=== PATIENT | male | born 1945 | race Caucasian/White ===

== ENCOUNTER 2018-03-22 07:58 | Observation (INO) ==
[2018-03-22 10:38] LABS: BASOPHILS % (AUTO) 0.8 % (0.2-1.0); EOSINOPHILS # (AUTO) 0.2 x10^3/uL (0.0-0.2); EOSINOPHILS % (AUTO) 3.6 % (0.9-2.9); HEMATOCRIT 35.1 % (42.0-54.0); HEMOGLOBIN 11.7 g/dL (13.5-18.0); LYMPHOCYTES # (AUTO) 1.5 X10^3/uL (1.3-2.9); LYMPHOCYTES % (AUTO) 31.6 % (21.0-51.0); MEAN CORPUSCULAR HEMOGLOBIN 29.5 pg (27.0-34.0); MEAN CORPUSCULAR HGB CONC 33.4 g/dL (33.0-35.0); MEAN CORPUSCULAR VOLUME 88.2 fL (80.0-100.0); MEAN PLATELET VOLUME 8.3 fL (7.4-11.0); MONOCYTES # (AUTO) 0.5 x10^3/uL (0.3-0.8); MONOCYTES % (AUTO) 10.7 % (0.0-13.0); NEUTROPHILS # (AUTO) 2.5 x10^3/uL (2.2-4.8); NEUTROPHILS % (AUTO) 53.3 % (42.0-75.0); PLATELET COUNT 262 X10^3/uL (150.0-450.0); RED BLOOD COUNT 3.98 X10^6/uL (4.7-6.0); RED CELL DISTRIBUTION WIDTH 14.4 % (11.6-16.5); WHITE BLOOD COUNT 4.7 X10^3/uL (3.6-10.0)
[2018-03-22 10:45] LABS: ALANINE AMINOTRANSFERASE 25 Units/L (12-78); ALKALINE PHOSPHATASE 51 Units/L (46-116); ASPARTATE AMINO TRANSFERASE 15 Units/L (15-37); BLOOD UREA NITROGEN 24 mg/dL (7-18); CALCIUM 8.4 mg/dL (8.5-10.1); CARBON DIOXIDE 30.5 mmol/L (21-32); CHLORIDE 106 mmol/L (98-107); COR CA(FOR HYPOALB) 9.2 mg/dL (8.5-10.1); CREATININE 1.02 mg/dL (0.70-1.30); SODIUM 142 mmol/L (136-145); TOTAL PROTEIN 6.9 g/dL (6.4-8.2); eGFR NON BLACK RACES > 60 (>60)
[2018-03-22 10:52] VITALS: BMI 36.9
[2018-03-22 12:17] LABS: BILIRUBIN,URINE NEGATIVE (NEGATIVE); BLOOD/HEMOGLOBIN,URINE NEGATIVE (NEGATIVE); GLUCOSE, URINE NEGATIVE (NEGATIVE); KETONES,URINE NEGATIVE (NEGATIVE); LEUKOCYTE ESTERASE ,URINE NEGATIVE (NEGATIVE); NITRITES,URINE NEGATIVE (NEGATIVE); PROTEIN,URINE NEGATIVE (NEGATIVE); UROBILINOGEN,URINE NORMAL (NORMAL)
[2018-03-22 12:20] LABS: APPEARANCE,URINE CLEAR (CLEAR); COLOR,URINE YELLOW (YELLOW)
[2018-03-22] MEDS ORDERED: NS 100 ML IV 100 ML IV ONE (15:14)
[2018-03-22] MEDS: NS 1000 ML 1,000 ML IV SCH (16:30)
[2018-03-22] MEDS: PHENERGAN INJ 25 MG IV PRN (17:00)
[2018-03-22] MEDS: DEMEROL INJ IVP PRN (17:00)
--- NOTE | 2018-03-22 17:47 | CT ---
CT abdomen and pelvis with contrast Indication: Abdominal pain, history of Crohn's Comparison: 03/02/2018 Technique: CT images of the abdomen and pelvis were obtained with IV and oral contrast. Automatic exp osure control was utilized. Findings: No acute osseous abnormality. The lung bases are essentially clear. The liver, gallbladder, spleen, stomach, duodenum, pancreas, and adrenals are unremarkable. Small renita ateral renal collecting system stones are similar to prior. There is no hydronephrosis. The kidneys e nhance normally. No ureteral stone identified. No significant thickening or dilatation of the lower G I tract identified. The appendix is normal. The urinary bladder, prostate, and rectum are unremarkabl e. No free fluid or adenopathy. Impression: No acute process to explain patient's symptoms. Nonobstructing bilateral nephrolithiasis and other findings as above. Reported By:
[2018-03-23] MEDS: NS 1000 ML 1,000 ML IV SCH ×2 (01:00→21:59)
[2018-03-23 05:24] LABS: BASOPHILS # (AUTO) 0.1 X10^3/uL (0.0-0.1); BASOPHILS % (AUTO) 1.1 % (0.2-1.0); EOSINOPHILS # (AUTO) 0.2 x10^3/uL (0.0-0.2); EOSINOPHILS % (AUTO) 4.4 % (0.9-2.9); HEMATOCRIT 34.8 % (42.0-54.0); HEMOGLOBIN 11.8 g/dL (13.5-18.0); LYMPHOCYTES # (AUTO) 1.5 X10^3/uL (1.3-2.9); LYMPHOCYTES % (AUTO) 28.9 % (21.0-51.0); MEAN CORPUSCULAR HEMOGLOBIN 29.8 pg (27.0-34.0); MEAN CORPUSCULAR HGB CONC 33.9 g/dL (33.0-35.0); MEAN PLATELET VOLUME 7.9 fL (7.4-11.0); MONOCYTES # (AUTO) 0.7 x10^3/uL (0.3-0.8); MONOCYTES % (AUTO) 13.7 % (0.0-13.0); NEUTROPHILS # (AUTO) 2.7 x10^3/uL (2.2-4.8); NEUTROPHILS % (AUTO) 51.9 % (42.0-75.0); PLATELET COUNT 257 X10^3/uL (150.0-450.0); RED BLOOD COUNT 3.96 X10^6/uL (4.7-6.0); RED CELL DISTRIBUTION WIDTH 14.5 % (11.6-16.5); WHITE BLOOD COUNT 5.2 X10^3/uL (3.6-10.0)
[2018-03-23 05:46] LABS: ALANINE AMINOTRANSFERASE 26 Units/L (12-78); ALBUMIN 2.8 g/dL (3.4-5.0); ALKALINE PHOSPHATASE 50 Units/L (46-116); ASPARTATE AMINO TRANSFERASE 19 Units/L (15-37); BLOOD UREA NITROGEN 21 mg/dL (7-18); CALCIUM 8.9 mg/dL (8.5-10.1); CARBON DIOXIDE 30.6 mmol/L (21-32); CHLORIDE 107 mmol/L (98-107); COR CA(FOR HYPOALB) 9.9 mg/dL (8.5-10.1); CREATININE 0.97 mg/dL (0.70-1.30); SODIUM 141 mmol/L (136-145); TOTAL PROTEIN 6.5 g/dL (6.4-8.2); eGFR NON BLACK RACES > 60 (>60)
[2018-03-23] MEDS: MILK OF MAGNESIA PO SCH ×4 (09:59→21:28)
[2018-03-23] MEDS ORDERED: COLACE CAP 100 MG PO SCH ×2 (10:00→21:00)
[2018-03-23] MEDS ORDERED: KLONOPIN TAB 1 MG PO PRN (11:24)
[2018-03-23] MEDS ORDERED: ULTRAM PO PRN (11:24)
[2018-03-23] MEDS ORDERED: VITAMIN D PO SCH (11:30)
[2018-03-23] MEDS ORDERED: POTASSIUM CITRATE PO SCH (11:30)
[2018-03-23] MEDS ORDERED: OMEGA DHA EPA FISH OIL PO SCH (11:30)
[2018-03-23] MEDS: PROTONIX TAB 40 MG PO SCH ×2 (11:34→21:25)
[2018-03-23] MEDS: COZAAR PO SCH (11:34)
[2018-03-23] MEDS: SYNTHROID 50 mcg TAB PO SCH (11:34)
[2018-03-23] MEDS: TIMOLOL EACHEYE SCH ×2 (11:46→21:28)
[2018-03-23] MEDS: DORZOLAMIDE EACHEYE SCH ×2 (11:46→21:28)
[2018-03-23] MEDS: DEMEROL INJ IVP PRN ×2 (11:47→21:26)
[2018-03-23] MEDS: ALPHAGAN P 0.15% OPHTH SOLN OP SCH ×2 (11:47→21:27)
[2018-03-23] MEDS: PHENERGAN INJ 25 MG IV PRN (11:48)
--- NOTE | 2018-03-23 15:49 | NM ---
HISTORY: Abdominal pain Study: Nuclear medicine HIDA scan with ejection fraction Comparison: None Technique: Multiple scintigraphic images of the abdomen were obtained the intravenous administration of 5.6 mCi of technetium labeled Choletec. Following distention of the gallbladder with radiotracer, the patient drank 8 oz of Ensure Plus to si mulate a fatty meal. An estimated gallbladder ejection fraction was calculated based on the physiolo gic response of this ingestion. Findings: Homogeneous uptake of radiotracer is seen throughout the liver. This intrabiliary ductal system is o bserved normally. The common hepatic and common bile duct grossly appear unremarkable with normal bi liary-bowel transit. The gallbladder is observed to fill normally. After the patient drank Ensure, a normal gallbladder ejection fraction of 0% (normal > 35%) is observ ed. IMPRESSION: 1. Normal hepatobiliary imaging scan. 2. Marked gallbladder hypokinesia, with calculated EF of 0%. Reported By:
[2018-03-23] MEDS ORDERED: VIT C VIT E LUTEIN MIN OM PO SCH (21:00)
[2018-03-23] MEDS: ZOCOR TAB 20 MG PO SCH (21:25)
[2018-03-23] MEDS: PROSCAR PO SCH (21:25)
[2018-03-23] MEDS: FLOMAX PO SCH (21:25)
[2018-03-23] MEDS: HEMOCYTE-PLUS PO SCH (21:26)
[2018-03-23] MEDS: MIRALAX POWDER (1 DOSE 17 G) PO SCH (21:26)
[2018-03-23] MEDS: ZANTAC PO SCH (21:26)
[2018-03-23] MEDS: COLACE CAP 100 MG PO SCH (21:27)
[2018-03-23] MEDS: LOVAZA PO SCH (21:27)
[2018-03-23] MEDS: XALATAN OP SCH (21:27)
[2018-03-23] MEDS: K-DUR TAB 20 MEQ PO SCH (21:28)
[2018-03-24] MEDS: NS 1000 ML 1,000 ML IV SCH (04:26)
[2018-03-24 06:37] LABS: BASOPHILS # (AUTO) 0.1 X10^3/uL (0.0-0.1); BASOPHILS % (AUTO) 1.2 % (0.2-1.0); EOSINOPHILS # (AUTO) 0.3 x10^3/uL (0.0-0.2); EOSINOPHILS % (AUTO) 4.8 % (0.9-2.9); HEMATOCRIT 35.4 % (42.0-54.0); HEMOGLOBIN 11.9 g/dL (13.5-18.0); LYMPHOCYTES # (AUTO) 1.7 X10^3/uL (1.3-2.9); LYMPHOCYTES % (AUTO) 32.6 % (21.0-51.0); MEAN CORPUSCULAR HEMOGLOBIN 29.9 pg (27.0-34.0); MEAN CORPUSCULAR HGB CONC 33.7 g/dL (33.0-35.0); MEAN CORPUSCULAR VOLUME 88.6 fL (80.0-100.0); MEAN PLATELET VOLUME 8.4 fL (7.4-11.0); MONOCYTES # (AUTO) 0.9 x10^3/uL (0.3-0.8); MONOCYTES % (AUTO) 17.1 % (0.0-13.0); NEUTROPHILS # (AUTO) 2.3 x10^3/uL (2.2-4.8); NEUTROPHILS % (AUTO) 44.3 % (42.0-75.0); PLATELET COUNT 247 X10^3/uL (150.0-450.0); RED CELL DISTRIBUTION WIDTH 14.7 % (11.6-16.5); WHITE BLOOD COUNT 5.3 X10^3/uL (3.6-10.0)
[2018-03-24 06:58] LABS: ALANINE AMINOTRANSFERASE 28 Units/L (12-78); ALBUMIN 2.9 g/dL (3.4-5.0); ALKALINE PHOSPHATASE 51 Units/L (46-116); ASPARTATE AMINO TRANSFERASE 19 Units/L (15-37); BLOOD UREA NITROGEN 23 mg/dL (7-18); CALCIUM 8.9 mg/dL (8.5-10.1); CARBON DIOXIDE 28.4 mmol/L (21-32); CHLORIDE 110 mmol/L (98-107); COR CA(FOR HYPOALB) 9.8 mg/dL (8.5-10.1); CREATININE 0.87 mg/dL (0.70-1.30); SODIUM 143 mmol/L (136-145); TOTAL PROTEIN 6.5 g/dL (6.4-8.2); eGFR NON BLACK RACES > 60 (>60)
[2018-03-24] MEDS: DEMEROL INJ IVP PRN ×3 (07:49→22:54)
--- NOTE | 2018-03-24 09:08 | RAD ---
HISTORY: Preop cholecystectomy Study: Chest PA and lateral Comparison: None Findings: The heart is within normal limits in size. The chao are normal. The lungs are well inflated and free of acute alveolar infiltrates. No pleural effusions are identified. The bony thorax is unremarkable. IMPRESSION: No significant abnormality identified Reported By:
[2018-03-24] MEDS: ALPHAGAN P 0.15% OPHTH SOLN OP SCH ×2 (09:18→20:48)
[2018-03-24] MEDS: PROTONIX TAB 40 MG PO SCH ×2 (09:19→20:40)
[2018-03-24] MEDS: SYNTHROID 50 mcg TAB PO SCH (09:19)
[2018-03-24] MEDS: VITAMIN D3 PO SCH (09:19)
[2018-03-24] MEDS: COLACE CAP 100 MG PO SCH ×2 (09:19→20:40)
[2018-03-24] MEDS: LOVAZA PO SCH ×2 (09:20→20:48)
[2018-03-24] MEDS: LASIX PO SCH (09:20)
[2018-03-24] MEDS: COZAAR PO SCH (09:20)
[2018-03-24] MEDS: K-DUR TAB 20 MEQ PO SCH ×2 (09:21→20:43)
[2018-03-24] MEDS: DORZOLAMIDE EACHEYE SCH ×2 (09:21→20:48)
[2018-03-24] MEDS: TIMOLOL EACHEYE SCH ×2 (09:21→20:48)
[2018-03-24] MEDS: MILK OF MAGNESIA PO SCH ×4 (09:22→20:48)
--- NOTE | 2018-03-24 10:03 | DR.UPDATE ---
H&P Update History and Physical Update: WAS SEEN IN THE OFFICE TODAY. A H&P WAS COMPLETED PRIOR TO ADMISSION. PATIENT HAS BEEN SEEN AND EXAMINED WITH NO CHANGES NOTED TO H&P. Changes noted: NO Yes with the following:
[2018-03-24] MEDS ORDERED: LR 1000 ML IV 1,000 ML IV ONE (12:07)
[2018-03-24] MEDS ORDERED: ANCEF 1 GRAM IV PREMIX* 1 G/50 ML BAG IV ONE (12:07)
[2018-03-24] MEDS ORDERED: FENTANYL INJ 250 mcg ONE (12:21)
--- NOTE | 2018-03-24 12:37 | PCM.PROG ---
Progress Note - Progress Note for Day of Date of Exam: 03/23/18 - Subjective Subjective: WAS ADMITTED FOR ABDOMINAL PAIN. TODAY, HE IS ALERT AND ORIENTED, LYING IN BED ON MORNING ROUNDS. HE CONTINUES WITH COMPLAINTS OF RIGHT UPPER QUADRANT AND RIGHT LOWER QUADRANT PAIN. ON EXAMINATION, HEART IS REGULAR IN RATE AND RHYTHM. BILATERAL LUNGS ARE NOTED WITH DIMINISHED LUNG SOUNDS THROUGHOUT. ABDOMEN IS DISTENDED AND NOTED WITH RIGHT SIDED TENDERNESS. NORMAL BOWEL SOUNDS ARE NOTED IN ALL QUADRANTS. HIS VITALS THIS MORNING ARE 98.0-63-20 -97%-166/75. LABS WERE OBTAINED. ABNORMAL LAB VALUES INCLUDE THE FOLLOWING: RBC 3.96, HGB 11.8, HCT 34.8, BUN 21, GLUCOSE 105, ALBUMIN 2.8. AN ABDOMEN/PELVIS CT WAS OBTAINED YESTERDAY AND REVEALED: The liver, gallbladder, spleen, stomach , duodenum, pancreas, and adrenals are unremarkable. Small bilateral renal collecting system stones are similar to prior. There is no hydronephrosis. The kidneys enhance normally. No ureteral stone identified. No significant thickening or dilatation of the lower GI tract identified. The appendix is normal. The urinary bladder, prostate, and rectum are unremarkable. No free fluid or adenopathy. HE IS SCHEDULED FOR A HIDA SCAN TODAY. OTHERWISE, WE WILL CONTINUE WITH CURRENT PLAN OF CARE. WE WILL FOLLOW UP WITH AM LABS AND CONTINUE TO MONITOR. - Past Medical Family Social History Past Med/Fam/Surg Hx: No changes since H&P Allergies: Allergies No Known Drug Allergies Allergy (Verified 03/22/18 09:41) - Review of Systems ROS: No change since H&P - Vital Signs and I&O's Vital Signs: Temperature 97.8 F Pulse Rate [Left] 56 Pulse Rate [Right Brachial] 56 Respiratory Rate 18 Blood Pressure [Left Arm] 163/77 Blood Pressure [Right Arm] 121/60 Blood Pressure 176/89 O2 Sat by Pulse Oximetry 96 Intake and Output: Intake & Output 03/22/18 03/23/18 03/24/18 03/25/18 11:59 11:59 11:59 11:59 Intake Total 650 / 650 1020 / 1020 Balance 650 / 650 1020 / 1020 - Physical Exam Oriented: Normal Eyes: Normal Ear: Normal Nose: Normal Throat: Normal Respiratory: Generalized, Diminished Cardiovascular: Normal. negative: S3, S4, Murmur : Normal Auscultation: Bowel Sounds: Normal Palpation: Normal Tenderness: RUQ, RLQ, Moderate. negative: Rebound, Guarding, Rigidity Skin: Normal Musculoskeletal: Normal Psychiatric: Normal Mood Description: Calm Affect: Normal Speech Pattern: Clear, Appropriate - Laboratory and Diagnostics Result Diagrams: 03/24/18 05:11 03/24/18 05:11 Labs: 03/22/18 12:07 Urine,Clean Catch Urine Culture - Final Laboratory WBC 5.3 X10^3/uL (3.6-10.0) 03/24/18 05:11 RBC 4.00 X10^6/uL (4.7-6.0) L 03/24/18 05:11 Hgb 11.9 g/dL (13.5-18.0) L 03/24/18 05:11 Hct 35.4 % (42.0-54.0) L 03/24/18 05:11 MCV 88.6 fL (80.0-100.0) 03/24/18 05:11 MCH 29.9 pg (27.0-34.0) 03/24/18 05:11 MCHC 33.7 g/dL (33.0-35.0) 03/24/18 05:11 RDW 14.7 % (11.6-16.5) 03/24/18 05:11 Plt Count 247 X10^3/uL (150.0-450.0) 03/24/18 05:11 MPV 8.4 fL (7.4-11.0) 03/24/18 05:11 Neut % (Auto) 44.3 % (42.0-75.0) 03/24/18 05:11 Lymph % (Auto) 32.6 % (21.0-51.0) 03/24/18 05:11 [place] % (Auto) 17.1 % (0.0-13.0) H 03/24/18 05:11 Eos % (Auto) 4.8 % (0.9-2.9) H 03/24/18 05:11 Baso % (Auto) 1.2 % (0.2-1.0) H 03/24/18 05:11 Neut # (Auto) 2.3 x10^3/uL (2.2-4.8) 03/24/18 05:11 Lymph # (Auto) 1.7 X10^3/uL (1.3-2.9) 03/24/18 05:11 [place] # (Auto) 0.9 x10^3/uL (0.3-0.8) H 03/24/18 05:11 Eos # (Auto) 0.3 x10^3/uL (0.0-0.2) H 03/24/18 05:11 Baso # (Auto) 0.1 X10^3/uL (0.0-0.1) 03/24/18 05:11 Absolute Nucleated RBC 0.0 /100WBC 03/24/18 05:11 Sodium 143 mmol/L (136-145) 03/24/18 05:11 Corrected Sodium TNP 03/24/18 05:11 Potassium 4.1 mmol/L (3.5-5.1) 03/24/18 05:11 Chloride 110 mmol/L (98-107) H 03/24/18 05:11 Carbon Dioxide 28.4 mmol/L (21-32) 03/24/18 05:11 BUN 23 mg/dL (7-18) H 03/24/18 05:11 Creatinine 0.87 mg/dL (0.70-1.30) 03/24/18 05:11 Est GFR (MDRD) Af Amer > 60 (>60) 03/24/18 05:11 Est GFR (MDRD) Non-Af > 60 (>60) 03/24/18 05:11 Glucose 106 mg/dL (65-99) H 03/24/18 05:11 Calcium 8.9 mg/dL (8.5-10.1) 03/24/18 05:11 Corrected Calcium 9.8 mg/dL (8.5-10.1) 03/24/18 05:11 Total Bilirubin 0.10 mg/dL (0.2-1.0) L 03/24/18 05:11 AST 19 Units/L (15-37) 03/24/18 05:11 ALT 28 Units/L (12-78) 03/24/18 05:11 Alkaline Phosphatase 51 Units/L (46-116) 03/24/18 05:11 Total Protein 6.5 g/dL (6.4-8.2) 03/24/18 05:11 Albumin 2.9 g/dL (3.4-5.0) L 03/24/18 05:11 Globulin 3.6 g/dL (2.5-4.5) 03/24/18 05:11 Albumin/Globulin Ratio 0.8 Ratio (1.1-2.1) L 03/24/18 05:11 Specimen Type Clean catch urine 03/22/18 12:07 Urine Color Yellow (YELLOW) 03/22/18 12:07 Urine Appearance Clear (CLEAR) 03/22/18 12:07 Urine pH 8.0 (5.0 - 8.0) 03/22/18 12:07 Ur Specific [place] 1.020 (1.000-1.030) 03/22/18 12:07 Urine Protein Negative (NEGATIVE) 03/22/18 12:07 Urine Glucose (UA) Negative (NEGATIVE) 03/22/18 12:07 Urine Ketones Negative (NEGATIVE) 03/22/18 12:07 Urine Occult Blood Negative (NEGATIVE) 03/22/18 12:07 Urine Nitrite Negative (NEGATIVE) 03/22/18 12:07 Urine Bilirubin Negative (NEGATIVE) 03/22/18 12:07 Urine Urobilinogen Normal (NORMAL) 03/22/18 12:07 Ur Leukocyte Esterase Negative (NEGATIVE) 03/22/18 12:07 - Plan (1) Abdominal pain Status: Acute Qualifiers: Abdominal location: generalized Qualified Code(s): R10.84 - Generalized abdominal pain Plan: HIDA SCAN TODAY, CONTINUE IV PAIN CONTROL, CONTINUE TO MONITOR.
[2018-03-24] MEDS ORDERED: DILAUDID INJ IVP PRN (13:37)
[2018-03-24] MEDS ORDERED: REGLAN INJ 10 MG VIAL IVP PRN (13:37)
[2018-03-24] MEDS ORDERED: PHENERGAN INJ 25 MG IVP PRN (13:37)
[2018-03-24] MEDS ORDERED: BENADRYL INJ 50 MG VIAL IVP PRN (13:37)
[2018-03-24] MEDS ORDERED: ZOFRAN INJ 4 MG VIAL IVP PRN (13:37)
[2018-03-24] MEDS ORDERED: SUPRANE IN ONE (15:18)
[2018-03-24] MEDS ORDERED: DIPRIVAN VIAL ONE (15:18)
[2018-03-24] MEDS ORDERED: EPHEDRINE SULFATE INJ ONE (15:18)
[2018-03-24] MEDS ORDERED: NORCURON INJ 10 MG VIAL ONE (15:18)
[2018-03-24] MEDS ORDERED: QUELICIN (OR ANECTINE) ONE (15:18)
[2018-03-24] MEDS ORDERED: NEOSTIGMINE INJ ONE (15:18)
[2018-03-24] MEDS ORDERED: VERSED ONE (15:18)
[2018-03-24] MEDS ORDERED: ZOFRAN INJ 4 MG VIAL ONE (15:18)
[2018-03-24] MEDS ORDERED: XYLOCAINE 2 % (PLAIN) ONE (15:18)
[2018-03-24] MEDS ORDERED: ROBINUL ONE (15:18)
[2018-03-24] MEDS: PROSCAR PO SCH (20:40)
[2018-03-24] MEDS: FLOMAX PO SCH (20:40)
[2018-03-24] MEDS: ZANTAC PO SCH (20:42)
[2018-03-24] MEDS: HEMOCYTE-PLUS PO SCH (20:42)
[2018-03-24] MEDS: ZOCOR TAB 20 MG PO SCH (20:43)
[2018-03-24] MEDS: MIRALAX POWDER (1 DOSE 17 G) PO SCH (20:45)
[2018-03-24] MEDS: XALATAN OP SCH (20:48)
[2018-03-25] MEDS: NS 1000 ML 1,000 ML IV SCH (02:26)
[2018-03-25 05:24] LABS: BASOPHILS # (AUTO) 0.1 X10^3/uL (0.0-0.1); EOSINOPHILS # (AUTO) 0.2 x10^3/uL (0.0-0.2); EOSINOPHILS % (AUTO) 2.9 % (0.9-2.9); HEMATOCRIT 34.3 % (42.0-54.0); HEMOGLOBIN 11.7 g/dL (13.5-18.0); LYMPHOCYTES # (AUTO) 1.8 X10^3/uL (1.3-2.9); LYMPHOCYTES % (AUTO) 26.3 % (21.0-51.0); MEAN CORPUSCULAR HEMOGLOBIN 30.1 pg (27.0-34.0); MEAN CORPUSCULAR HGB CONC 34.1 g/dL (33.0-35.0); MEAN CORPUSCULAR VOLUME 88.4 fL (80.0-100.0); MEAN PLATELET VOLUME 7.9 fL (7.4-11.0); MONOCYTES # (AUTO) 0.8 x10^3/uL (0.3-0.8); MONOCYTES % (AUTO) 11.6 % (0.0-13.0); NEUTROPHILS % (AUTO) 58.2 % (42.0-75.0); PLATELET COUNT 231 X10^3/uL (150.0-450.0); RED BLOOD COUNT 3.89 X10^6/uL (4.7-6.0); RED CELL DISTRIBUTION WIDTH 14.4 % (11.6-16.5); WHITE BLOOD COUNT 6.9 X10^3/uL (3.6-10.0)
[2018-03-25] MEDS: DEMEROL INJ IVP PRN (05:26)
[2018-03-25 05:33] LABS: ALANINE AMINOTRANSFERASE 40 Units/L (12-78); ALBUMIN 2.8 g/dL (3.4-5.0); ALKALINE PHOSPHATASE 56 Units/L (46-116); ASPARTATE AMINO TRANSFERASE 38 Units/L (15-37); BLOOD UREA NITROGEN 17 mg/dL (7-18); CALCIUM 8.4 mg/dL (8.5-10.1); CHLORIDE 107 mmol/L (98-107); COR CA(FOR HYPOALB) 9.4 mg/dL (8.5-10.1); CREATININE 0.88 mg/dL (0.70-1.30); SODIUM 141 mmol/L (136-145); TOTAL PROTEIN 6.3 g/dL (6.4-8.2); eGFR NON BLACK RACES > 60 (>60)
[2018-03-25 08:01] VITALS: BP 156/70
--- NOTE | 2018-03-25 08:26 | DR.PROGNOT ---
Hospital Progress Notes - Progress Note for Day of: Progress Note Date: 03/25/18 - Chief Complaint Chief Complaint: PO lap jamarcus . doing well , mild incisional pain , no nausea or vomiting .. LFT normal . will follow in the office. - Past Medical Family Social History Past Med/Fam/Surg Hx: No changes since H&P Allergies: Allergies No Known Drug Allergies Allergy (Verified 03/22/18 09:41) - Review Of Systems ROS: No change since H&P - Vital Signs Vital Signs: Temperature 97.9 F Pulse Rate [Left] 55 Pulse Rate [Right Brachial] 55 Pulse Rate 69 Respiratory Rate 18 Blood Pressure [Left Arm] 119/58 Blood Pressure [Right Arm] 156/70 Blood Pressure 163/77 O2 Sat by Pulse Oximetry 93 - Physical Exam Oriented: Normal Eyes: Normal Ear: Normal Nose: Normal Throat: Normal Respiratory: Generalized, Diminished Cardiovascular: Normal. negative: S3, S4, Murmur : Normal GI:Auscultation: Normal GI:Palpation: Normal GI: Tenderness: RUQ, RLQ, Moderate. negative: Rebound, Guarding, Rigidity Skin: Normal Musculoskeletal: Normal Psychiatric: Normal Mood Description: Calm Affect: Normal Speech Pattern: Clear, Appropriate - Laboratory and Diagnostics Result Diagrams: 03/25/18 04:58 03/25/18 04:58 Labs: 03/22/18 12:07 Urine,Clean Catch Urine Culture - Final Laboratory WBC 6.9 X10^3/uL (3.6-10.0) 03/25/18 04:58 RBC 3.89 X10^6/uL (4.7-6.0) L 03/25/18 04:58 Hgb 11.7 g/dL (13.5-18.0) L 03/25/18 04:58 Hct 34.3 % (42.0-54.0) L 03/25/18 04:58 MCV 88.4 fL (80.0-100.0) 03/25/18 04:58 MCH 30.1 pg (27.0-34.0) 03/25/18 04:58 MCHC 34.1 g/dL (33.0-35.0) 03/25/18 04:58 RDW 14.4 % (11.6-16.5) 03/25/18 04:58 Plt Count 231 X10^3/uL (150.0-450.0) 03/25/18 04:58 MPV 7.9 fL (7.4-11.0) 03/25/18 04:58 Neut % (Auto) 58.2 % (42.0-75.0) 03/25/18 04:58 Lymph % (Auto) 26.3 % (21.0-51.0) 03/25/18 04:58 [place] % (Auto) 11.6 % (0.0-13.0) 03/25/18 04:58 Eos % (Auto) 2.9 % (0.9-2.9) 03/25/18 04:58 Baso % (Auto) 1.0 % (0.2-1.0) 03/25/18 04:58 Neut # (Auto) 4.0 x10^3/uL (2.2-4.8) 03/25/18 04:58 Lymph # (Auto) 1.8 X10^3/uL (1.3-2.9) 03/25/18 04:58 [place] # (Auto) 0.8 x10^3/uL (0.3-0.8) 03/25/18 04:58 Eos # (Auto) 0.2 x10^3/uL (0.0-0.2) 03/25/18 04:58 Baso # (Auto) 0.1 X10^3/uL (0.0-0.1) 03/25/18 04:58 Absolute Nucleated RBC 0.0 /100WBC 03/25/18 04:58 Sodium 141 mmol/L (136-145) 03/25/18 04:58 Corrected Sodium TNP 03/25/18 04:58 Potassium 4.1 mmol/L (3.5-5.1) 03/25/18 04:58 Chloride 107 mmol/L (98-107) 03/25/18 04:58 Carbon Dioxide 30.0 mmol/L (21-32) 03/25/18 04:58 BUN 17 mg/dL (7-18) 03/25/18 04:58 Creatinine 0.88 mg/dL (0.70-1.30) 03/25/18 04:58 Est GFR (MDRD) Af Amer > 60 (>60) 03/25/18 04:58 Est GFR (MDRD) Non-Af > 60 (>60) 03/25/18 04:58 Glucose 103 mg/dL (65-99) H 03/25/18 04:58 Calcium 8.4 mg/dL (8.5-10.1) L 03/25/18 04:58 Corrected Calcium 9.4 mg/dL (8.5-10.1) 03/25/18 04:58 Total Bilirubin 0.40 mg/dL (0.2-1.0) 03/25/18 04:58 AST 38 Units/L (15-37) H 03/25/18 04:58 ALT 40 Units/L (12-78) 03/25/18 04:58 Alkaline Phosphatase 56 Units/L (46-116) 03/25/18 04:58 Total Protein 6.3 g/dL (6.4-8.2) L 03/25/18 04:58 Albumin 2.8 g/dL (3.4-5.0) L 03/25/18 04:58 Globulin 3.5 g/dL (2.5-4.5) 03/25/18 04:58 Albumin/Globulin Ratio 0.8 Ratio (1.1-2.1) L 03/25/18 04:58 Specimen Type Clean catch urine 03/22/18 12:07 Urine Color Yellow (YELLOW) 03/22/18 12:07 Urine Appearance Clear (CLEAR) 03/22/18 12:07 Urine pH 8.0 (5.0 - 8.0) 03/22/18 12:07 Ur Specific [place] 1.020 (1.000-1.030) 03/22/18 12:07 Urine Protein Negative (NEGATIVE) 03/22/18 12:07 Urine Glucose (UA) Negative (NEGATIVE) 03/22/18 12:07 Urine Ketones Negative (NEGATIVE) 03/22/18 12:07 Urine Occult Blood Negative (NEGATIVE) 03/22/18 12:07 Urine Nitrite Negative (NEGATIVE) 03/22/18 12:07 Urine Bilirubin Negative (NEGATIVE) 03/22/18 12:07 Urine Urobilinogen Normal (NORMAL) 03/22/18 12:07 Ur Leukocyte Esterase Negative (NEGATIVE) 03/22/18 12:07 Tissue Pathology To follow 03/24/18 13:07 - Assessment and Plan 1: post op lap jamarcus for cholecystitis . h/o Crohn's disease ,. will advance diet and follow in the office. - Problem Patient Problems: Patient Problems Abdominal pain (Acute) R10.9
[2018-03-25] MEDS: VITAMIN D3 PO SCH (09:28)
[2018-03-25] MEDS: MILK OF MAGNESIA PO SCH (09:28)
[2018-03-25] MEDS: K-DUR TAB 20 MEQ PO SCH (09:28)
[2018-03-25] MEDS: PROTONIX TAB 40 MG PO SCH (09:28)
[2018-03-25] MEDS: COZAAR PO SCH (09:29)
[2018-03-25] MEDS: SYNTHROID 50 mcg TAB PO SCH (09:29)
[2018-03-25] MEDS: LASIX PO SCH (09:29)
[2018-03-25] MEDS: COLACE CAP 100 MG PO SCH (09:30)
[2018-03-25] MEDS: LOVAZA PO SCH (09:30)
--- NOTE | 2018-05-01 14:23 | PCM.PROG ---
Progress Note - Progress Note for Day of Date of Exam: 03/24/18 - Subjective Subjective: WAS ADMITTED FOR ABDOMINAL PAIN. TODAY, HE IS ALERT AND ORIENTED, LYING IN BED ON MORNING ROUNDS. HE CONTINUES WITH COMPLAINTS OF RIGHT UPPER QUADRANT AND RIGHT LOWER QUADRANT PAIN. ON EXAMINATION, HEART IS REGULAR IN RATE AND RHYTHM. BILATERAL LUNGS ARE NOTED WITH DIMINISHED LUNG SOUNDS THROUGHOUT. ABDOMEN IS DISTENDED AND NOTED WITH RIGHT SIDED TENDERNESS. NORMAL BOWEL SOUNDS ARE NOTED IN ALL QUADRANTS. HIS VITALS THIS MORNING ARE 97.8-56-18 -96%-163/77. LABS WERE OBTAINED. HE IS HEMODYNAMICALLY STABLE TODAY. A HIDA SCAN WAS OBTAINED YESTERDAY AND OBTAINED AN EJECTION FRACTION OF 0%. WE CONSULTED AND HE PLANS FOR A LAP DON TODAY. WE ARE IN AGREEMENT WITH PLAN AND PATIENT IS MEDICALLY STABLE AND CLEAR FOR SURGERY. OTHERWISE, WE WILL CONTINUE WITH CURRENT PLAN OF CARE. WE WILL FOLLOW UP WITH AM LABS AND CONTINUE TO MONITOR. - Past Medical Family Social History Past Med/Fam/Surg Hx: No changes since H&P Allergies: Allergies No Known Drug Allergies Allergy (Verified 03/22/18 09:41) - Review of Systems ROS: No change since H&P - Vital Signs and I&O's Vital Signs: Temperature 97.9 F Pulse Rate [Left] 55 Pulse Rate [Right Brachial] 55 Pulse Rate 69 Respiratory Rate 18 Blood Pressure [Left Arm] 119/58 Blood Pressure [Right Arm] 156/70 Blood Pressure 163/77 O2 Sat by Pulse Oximetry 93 - Physical Exam Oriented: Normal Eyes: Normal Ear: Normal Nose: Normal Throat: Normal Respiratory: Generalized, Diminished Cardiovascular: Normal. negative: S3, S4, Murmur : Normal Auscultation: Bowel Sounds: Normal Palpation: Normal Tenderness: RUQ, RLQ, Moderate. negative: Rebound, Guarding, Rigidity Skin: Normal Musculoskeletal: Normal Psychiatric: Normal Mood Description: Calm Affect: Normal Speech Pattern: Clear, Appropriate - Laboratory and Diagnostics Result Diagrams: 03/25/18 04:58 03/25/18 04:58 Labs: 03/22/18 12:07 Urine,Clean Catch Urine Culture - Final Laboratory WBC 6.9 X10^3/uL (3.6-10.0) 03/25/18 04:58 RBC 3.89 X10^6/uL (4.7-6.0) L 03/25/18 04:58 Hgb 11.7 g/dL (13.5-18.0) L 03/25/18 04:58 Hct 34.3 % (42.0-54.0) L 03/25/18 04:58 MCV 88.4 fL (80.0-100.0) 03/25/18 04:58 MCH 30.1 pg (27.0-34.0) 03/25/18 04:58 MCHC 34.1 g/dL (33.0-35.0) 03/25/18 04:58 RDW 14.4 % (11.6-16.5) 03/25/18 04:58 Plt Count 231 X10^3/uL (150.0-450.0) 03/25/18 04:58 MPV 7.9 fL (7.4-11.0) 03/25/18 04:58 Neut % (Auto) 58.2 % (42.0-75.0) 03/25/18 04:58 Lymph % (Auto) 26.3 % (21.0-51.0) 03/25/18 04:58 [place] % (Auto) 11.6 % (0.0-13.0) 03/25/18 04:58 Eos % (Auto) 2.9 % (0.9-2.9) 03/25/18 04:58 Baso % (Auto) 1.0 % (0.2-1.0) 03/25/18 04:58 Neut # (Auto) 4.0 x10^3/uL (2.2-4.8) 03/25/18 04:58 Lymph # (Auto) 1.8 X10^3/uL (1.3-2.9) 03/25/18 04:58 [place] # (Auto) 0.8 x10^3/uL (0.3-0.8) 03/25/18 04:58 Eos # (Auto) 0.2 x10^3/uL (0.0-0.2) 03/25/18 04:58 Baso # (Auto) 0.1 X10^3/uL (0.0-0.1) 03/25/18 04:58 Absolute Nucleated RBC 0.0 /100WBC 03/25/18 04:58 Sodium 141 mmol/L (136-145) 03/25/18 04:58 Corrected Sodium TNP 03/25/18 04:58 Potassium 4.1 mmol/L (3.5-5.1) 03/25/18 04:58 Chloride 107 mmol/L (98-107) 03/25/18 04:58 Carbon Dioxide 30.0 mmol/L (21-32) 03/25/18 04:58 BUN 17 mg/dL (7-18) 03/25/18 04:58 Creatinine 0.88 mg/dL (0.70-1.30) 03/25/18 04:58 Est GFR (MDRD) Af Amer > 60 (>60) 03/25/18 04:58 Est GFR (MDRD) Non-Af > 60 (>60) 03/25/18 04:58 Glucose 103 mg/dL (65-99) H 03/25/18 04:58 Calcium 8.4 mg/dL (8.5-10.1) L 03/25/18 04:58 Corrected Calcium 9.4 mg/dL (8.5-10.1) 03/25/18 04:58 Total Bilirubin 0.40 mg/dL (0.2-1.0) 03/25/18 04:58 AST 38 Units/L (15-37) H 03/25/18 04:58 ALT 40 Units/L (12-78) 03/25/18 04:58 Alkaline Phosphatase 56 Units/L (46-116) 03/25/18 04:58 Total Protein 6.3 g/dL (6.4-8.2) L 03/25/18 04:58 Albumin 2.8 g/dL (3.4-5.0) L 03/25/18 04:58 Globulin 3.5 g/dL (2.5-4.5) 03/25/18 04:58 Albumin/Globulin Ratio 0.8 Ratio (1.1-2.1) L 03/25/18 04:58 CA 19-9 Antigen 24 U/mL (0-37) 03/23/18 05:00 Specimen Type Clean catch urine 03/22/18 12:07 Urine Color Yellow (YELLOW) 03/22/18 12:07 Urine Appearance Clear (CLEAR) 03/22/18 12:07 Urine pH 8.0 (5.0 - 8.0) 03/22/18 12:07 Ur Specific [place] 1.020 (1.000-1.030) 03/22/18 12:07 Urine Protein Negative (NEGATIVE) 03/22/18 12:07 Urine Glucose (UA) Negative (NEGATIVE) 03/22/18 12:07 Urine Ketones Negative (NEGATIVE) 03/22/18 12:07 Urine Occult Blood Negative (NEGATIVE) 03/22/18 12:07 Urine Nitrite Negative (NEGATIVE) 03/22/18 12:07 Urine Bilirubin Negative (NEGATIVE) 03/22/18 12:07 Urine Urobilinogen Normal (NORMAL) 03/22/18 12:07 Ur Leukocyte Esterase Negative (NEGATIVE) 03/22/18 12:07 Tissue Pathology To follow 03/24/18 13:07 - Plan (1) Abdominal pain Status: Acute Qualifiers: Abdominal location: generalized Qualified Code(s): R10.84 - Generalized abdominal pain Plan: LAP DON TODAY, CONTINUE IV PAIN CONTROL, CONTINUE TO MONITOR. (2) Dysfunctional gallbladder Status: Acute Plan: LAP DON TODAY, CONTINUE TO MONITOR
--- NOTE | 2018-05-08 19:32 | DR.CARTERD ---
- Discharge Summary for: Discharge Summary for Date of:: 03/25/18 - Admission Date Date of Admission: 03/22/18 - Admission Diagnoses Admission Diagnosis: (1) Abdominal pain - Discharge Date Discharge Date: 03/25/18 - Discharge Diagnoses Discharge Diagnosis: (1) Abdominal pain (2) Dysfunctional gallbladder - Hospital Course Hospital Course: Day one, patient presented to the hospital as a direct admission after being seen in the office with reports of abdominal pain. Patient stated "my stomach is a mess. I hurt where my gallbladder is at". Patient reported that two months ago he went to the [facility] in [place], [place] and had an EGD. He stated that he was told that two spots along with a growth and a mass was found on his pancreas. Patient [facility]. Patient stated that pain was worse with ambulation and movement. He stated that it was not a constant pain but when it did hurt, it was severe. Medical History: Cataracts, Glaucoma, Hyperlipdiemia, Hypertension, Sleep Apnea, Crohns Disease, Arthritis, Osteoarthritis, Back Pain, Plasmapharesis. Abnormal Labs: RBC 3.98, Hgb 11.7, Hct 35.1, BUN 24, Calcium 8.4, Albumin 3.0, A/G Ratio 0.8 Urine Culture Pending. Abdomen/Pelvis CT: The liver, gallbladder, spleen, stomach, duodenum, pancreas, and adrenals are unremarkable. Small bilateral renal collecting system stones are similar to prior. There is no hydronephrosis. The kidneys enhance normally. No ureteral stone identified. No significant thickening or dilatation of the lower GI tract identified. The appendix is normal. The urinary bladder, prostate, and rectum are unremarkable. No free fluid or adenopathy. Impression: No acute process to explain patient's symptoms. Non-obstructing bilateral nephrolithiasis and other findings as above. Patient admitted to the hospital for further evaluation and treatment. Medications: NS @80ml/hr, Demerol 25mg IV Q4hr PRN, Phenergan 25mg IV Q4hr PRN. Day two, Mr. Kincaid was admitted for abdominal pain. He was alert and oriented. He continued with complaints of right upper quadrant and right lower quadrant abdominal pain. On examination, abdomen was distended and noted with right sided tenderness. Normal bowel sounds noted. Vital signs stable. Abd/pelvis CT was obtained and reported: The liver, gallbladder, spleen, stomach, duodenum, pancreas, and adrenals are unremarkable. Small bilateral renal collecting system stones are similar to prior. There is no hydronephrosis. The kidneys enhance normally. No ureteral stone identified. No significant thickening or dilatation of the lower GI tract identified. The appendix is normal. The urinary bladder, prostate, and rectum are unremarkable. No free fluid or adenopathy. We continued to monitor. Day three, He continued with complaints of right upper quadrant and right lower quadrant pain. On examination, abdomen continued to be distended and noted with right sided pain. Hida scan was obtained and reported and ejection fraction of 0 %. We consulted Dr. Jimenez for lap jamarcus. We continued to monitor. Day four, Patient was taken to OR for lap jamarcus per Dr. Jimenez. Patient tolerated procedure well. Patient was stable following procedure and reported less abdominal pain. Dressings were dry and intact. Dr. Jimenez released patient for discharge. Vital signs stable. Labs wnl. Pain was controlled with oral pain medication. We planned for discharge. Instructions for medications and follow up were discussed with patient and family, both voiced understanding. Patient discharged home in stable condition with family. - Discharge Medications Discharge Medications: Home Medication List Dorzolamide Hcl Timolol Maleate 2.23%/0.68% 1 drp EACHEYE BID 03/22/18 [History] Vitamin D 2000 Iu 2,000 units PO DAILY 03/22/18 [History] brimonidine 1 drp OPHTHALMIC (EYE) BID 03/22/18 [History] clonazepam 1 tab PO HS PRN 03/22/18 [History] iron-folic acid-mv, min cmb#15 [Hemocyte-Plus] 1 cap PO HS 03/22/18 [History] latanoprost 1 drp OPHTHALMIC (EYE) HS 03/22/18 [History] levothyroxine 1 tab PO DAILY 03/22/18 [History] losartan 100 mg PO DAILY 03/22/18 [History] meloxicam 1 tab PO DAILY 03/22/18 [History] omega 9-uub-avs-fish oil [Fish Oil] 2 cap PO BID 03/22/18 [History] pantoprazole 1 tab PO BID 03/22/18 [History] polyethylene glycol 3350 17 g PO HS 03/22/18 [History] potassium citrate 2 tab PO BID 03/22/18 [History] simvastatin 1 tab PO HS 03/22/18 [History] tramadol 1 tab PO BID PRN 03/22/18 [History] vit C-vit V-aimitt-vgj-om-3 [Ocuvite] 1 tab PO HS 03/22/18 [History] hydrocodone-acetaminophen [Moca] 1 tab PO Q4H PRN #15 tab 03/25/18 [Rx] Prescriptions: hydrocodone-acetaminophen [Moca] BENY JIMENEZ - Discharge Disposition Discharge Disposition: Patient is to follow up in our office in one week and with Dr. Jimenez in one week.
== END 2018-03-25 09:45 | disposition home or self-care (01) ==
LOC: MED/SURG
PROVIDERS: ADMIT Internal Medicine; ATTEND Internal Medicine
DX: K80.18 Calculus of gallbladder with other cholecystitis without obstruction; K21.9 Gastro-esophageal reflux disease without esophagitis; E66.9 Obesity, unspecified; I10 Essential (primary) hypertension; J44.9 Chronic obstructive pulmonary disease, unspecified; R10.11 Right upper quadrant pain; R16.0 Hepatomegaly, not elsewhere classified; Z79.899 Other long term (current) drug therapy; R10.31 Right lower quadrant pain; K82.8 Other specified diseases of gallbladder; N40.0 Benign prostatic hyperplasia without lower urinary tract symptoms; K50.90 Crohn's disease, unspecified, without complications; E78.2 Mixed hyperlipidemia
CPT/HCPCS: 36415; 71020; 71046; 74177; 78227; 80053; 81003; 85025; 86301; 86316; 87086; 88304; 93005; A4216; A4222; A9537; S0138; G0378; J0330; J0690; J2175; J2250; J2405; J2550; J2704; J2710; J3010; J3490; J7030; J7050; J7120